=== PATIENT | male | born 1955 | race Caucasian/White ===

== ENCOUNTER 2024-09-08 13:44 | Emergency (ER) | payer MEDICARE, BC, SELFPAY ==
[2024-09-08 13:55] VITALS: BP 135/88; PULSE 97; RESP 20; TEMP 37.4; O2SAT 97; BMI 25.1
--- NOTE | 2024-09-08 14:00 | ED.GENADULT ---
HPI - General Adult General Chief complaint: Extremity Pain/Injury, Upper Stated complaint: L arm pain Time Seen by Provider: 09/08/24 13:58 History of Present Illness HPI narrative: comes to ed with concerns of left arm pain. this is concerning to him as he is concerned about his heart. pain does worsen with palpation. does admit to working hard removing [place] from some property yesterday. had no pain until 1300. did feel achy yesterday. denies other symptoms. 68-year-old man presenting to the emergency department with left tricep area deep ache such that he would have trouble sleeping. He is right-handed. Spent a lot of time yesterday in intense work with chain saws in hacking in pulling attempting to remove vegetations specifically [place] or in from property. [place] muscle fatigue yesterday but then around an hour ago had much increase in this left upper arm ache. No shortness of breath or chest pain otherwise. Never been a smoker. Related Data Home Medications ?Medication ?Instructions ?Recorded ?Confirmed No Known Home Medications 09/08/24 09/08/24 Allergies Allergy/AdvReac Type Severity Reaction Status Date / Time No Known Drug Allergies Allergy Verified 09/08/24 13:54 Review of Systems Status of ROS: Reports: 6 or more systems reviewed and unremarkable except as noted in History and below PFSH PFS Social History Smoking Status: Former smoker Do you use any of these nicotine containing products: None Second hand tobacco smoke exposure: No How often do you have a drink containing alcohol: 2-4 times a month How many standard drinks containing alcohol do you have on a typical day: 3 or 4 How often do you have six or more drinks on one occasion: Never AUDIT-C Alcohol total score: 3 Non-prescribed substance use: denies use service: No Exam Narrative: Exam Narrative: Pleasant. [place] complexion. Does look as though he has been spending some time outside. Head is atraumatic. Neck is supple. Back nontender. No pain to palpation about the shoulder clavicles. Reproducibly sore in lower left mid to lateral triceps musculature. Well-perfused peripherally. Heart in mildly elevated rate in a regular rhythm. No murmur rub or gallop. Const: Vital Signs, click to edit/add: Vital Signs - 24 hr 09/08/24 13:55 Temperature 99.4 F Pulse Rate [Pulse Oximeter] 97 Respiratory Rate 20 Blood Pressure [Ri ght Upper Arm] 135/88 Pulse Oximetry 97 Oxygen Delivery Me thod Room Air Documenting provider has reviewed patient's vital signs: yes Course Vital Signs Vital signs: Initial Vital Signs Temperature 99.4 F 09/08/24 13:55 Temperature Source Temporal Artery Scan 09/08/24 13:55 Pulse Rate 97 09/08/24 13:55 Pulse Rhythm Regular 09/08/24 13:55 Respiratory Rate 20 09/08/24 13:55 Blood Pressure 135/88 09/08/24 13:55 Blood Pressure Mean 103 09/08/24 13:55 Blood Pressure Position Supine 09/08/24 13:55 Pulse Oximetry 97 09/08/24 13:55 Oxygen Delivery Method Room Air 09/08/24 13:55 Vital Signs Temperature 99.4 F 09/08/24 13:55 Pulse Rate 97 09/08/24 13:55 Respiratory Rate 20 09/08/24 13:55 Blood Pressure 135/88 09/08/24 13:55 Pulse Oximetry 97 09/08/24 13:55 Oxygen Delivery Method Room Air 09/08/24 13:55 Temperature 99.4 F 09/08/24 13:55 Pulse Rate 97 09/08/24 13:55 Respiratory Rate 20 09/08/24 13:55 Blood Pressure 135/88 09/08/24 13:55 Pulse Oximetry 97 09/08/24 13:55 Oxygen Delivery Method Room Air 09/08/24 13:55 Medical Decision Making MDM Narrative Medical decision making narrative: I suspect more of a musculoskeletal etiology though bothersome that he is right-hand dominant in its left tricep that is bothering. Does describe though some rather intense physical activity. Can certainly screen for possible cardiac event. Did collect labs. These are reassuring as is EKG. On reassessment describes some movement at is shoulder that seems to have released discomfort in his tricep. Overall improved. See patient discharge plan for further discussion Lab Data Lab results reviewed: Yes I reviewed the patient's lab results Labs: Lab Results 09/08/24 Range/Units 14:48 Hgb 14.9 (13.5-17.5) gm/dL D-Dimer Quant (PE/DVT) 0.22 (0.00-0.50) ug/ml Sodium 136 (135-149) mmol/L Potassium 4.2 (3.6-5.1) mmol/L Chloride 103 (96-114) mmol/L Carbon Dioxide 23 (20-32) mmol/L Anion Gap 10 (7-15) mEq/L BUN 20 (7-30) mg/dL Creatinine 0.7 (0.5-1.5) mg/dL Estimated Creat Clear 70.30 Estimated GFR 102 ml/min Glucose 111 (60-115) mg/dL Calcium 9.6 (8.4-10.6) mg/dL Troponin I < 0.01 L (0.01-0.04) ng/mL NT-Pro-B Natriuret Pep 29 pg/mL POC Troponin I 0.00 L (0.01-0.04) ng/ml ECG Data Attestation: I personally reviewed and interpreted this ECG as follows: (Normal sinus at 86. No ST elevation or depression. Evolving bundle-branch?) Discharge Plan Discharge Clinical Impression: Left upper arm pain Additional Instructions: Keep stretching. Return for persistent chest pain particularly associated with nausea or shortness of breath. For now can take ibuprofen up to 800 mg per dose or up to 1000 mg of acetaminophen per dose. Alternative to the ibuprofen might be up to 500 mg of naproxen 2 times daily. Prescriptions: No Action No Known Home Medications Follow Up/Referrals: Peterson Santana MD [Primary Care Provider] - Stand Alone Forms: [employer] Info Instructions
[2024-09-08 15:05] LABS: Hemoglobin* 14.9 gm/dL (13.5-17.5)
[2024-09-08 15:40] LABS: Chloride* 103 mmol/L (96-114); Potassium* 4.2 mmol/L (3.6-5.1); Sodium* 136 mmol/L (135-149)
[2024-09-08 15:43] LABS: Anion Gap 10 mEq/L (7-15); Blood Urea Nitrogen* 20 mg/dL (7-30); Carbon Dioxide* 23 mmol/L (20-32); Creatinine* 0.7 mg/dL (0.5-1.5); Estimated Glomerular Filt Rate 102 ml/min
[2024-09-08 15:44] LABS: Calcium* 9.6 mg/dL (8.4-10.6); Glucose* 111 mg/dL (60-115)
[2024-09-08 15:52] LABS: D Dimer Quantitative* 0.22 ug/ml (0.00-0.50)
[2024-09-08 15:56] LABS: NT Pro B Type NatriureticPept* 29 pg/mL; Troponin I* < 0.01 ng/mL (0.01-0.04)
== END 2024-09-08 16:31 | disposition home or self-care (01) ==
PROVIDERS: Emergency Provider Family Medicine; PCP Family Medicine
DX: M79.622 Pain in left upper arm (principal)
CPT/HCPCS: 36415; 80048; 83880; 84484; 85018; 85379; 99284